=== PATIENT | female | born 1980 | race Caucasian/White ===

== ENCOUNTER 2018-11-03 07:32 | Emergency (ER) | payer MEDICAID ==
[2018-11-03] MEDS ORDERED: Ketorolac 60 MG/2 ML SDV IM ONE (08:11)
[2018-11-03] MEDS ORDERED: Acetaminophen/HYDROcodone 325-5 MG Tab PO ONE (08:11)
--- NOTE | 2018-11-03 10:36 | EDM.PDOC ---
ED HPI GENERAL MEDICAL PROBLEM - General Chief Complaint: Back Pain or Injury Stated Complaint: FELL YESTERDAY MULTIPLE INJURIES Time Seen by Provider: 11/03/18 08:03 Source of Information: Reports: Patient, RN Notes Reviewed - History of Present Illness INITIAL COMMENTS - FREE TEXT/NARRATIVE: 38-year-old female missed a step stepping down from the fifth feel trailer yesterday afternoon. L landing primarily on her right shoulder and right hip. A lot of right shoulder pain and also low back pain. She's been taking some Tylenol and Advil but not getting good relief. Pain is worse with any type of motion. Very mild headache. No LOC. No major neck pain. Mild pain left chest with deep breathing. Generalized Pain Score (Numeric/FACES): 4 - Related Data Allergies Allergy/AdvReac Type Severity Reaction Status Date / Time No Known Allergies Allergy Verified 11/03/18 07:51 Home Meds: Home Meds Albuterol [Ventolin HFA] 1 puff INH Q6HR PRN 11/03/18 [History] Hydrocodone/Acetaminophen [M[place]urtain 5-325 Tablet] 1 each PO Q6HR PRN #10 tablet [Rx] Past Medical History Cardiovascular History: Reports: Other (See Below) Other Cardiovascular History: angioedema Respiratory History: Reports: Asthma [employer] History: Reports: - Past Surgical History HEENT Surgical History: Reports: Tonsillectomy Female Surgical History: Reports: Section Social & Family History - Tobacco Use Smoking Status *Q: Current Every Day Smoker Years of Tobacco use: 15 Packs/Tins Daily: 1 - Caffeine Use Caffeine Use: Reports: None - Recreational Drug Use Recreational Drug Use: Yes Drug Use in Last 12 Months: Yes Recreational Drug Type: Reports: Marijuana/Hashish Recreational Drug Use Frequency: Socially ED ROS GENERAL - Review of Systems Review Of Systems: See Below Constitutional: Reports: No Symptoms HEENT: Denies: Ear Discharge, Ear Pain, Nose Pain, Throat Pain, Vertigo Respiratory: Denies: Shortness of Breath Cardiovascular: Reports: Chest Pain GI/Abdominal: Denies: Abdominal Pain, Nausea, Vomiting Musculoskeletal: Reports: Shoulder Pain, Back Pain. Denies: Neck Pain, Leg Pain Skin: Reports: No Symptoms ED EXAM,LOWER BACK PAIN/INJURY - Physical Exam Exam: See Below General Appearance: Alert, Anxious, Moderate Distress Eye Exam: Bilateral Eye: PERRL Throat/Mouth: Normal Inspection Head: Atraumatic. No: Facial Swelling Neck: Supple, Non-Tender, Full Range of Motion Respiratory/Chest: No Respiratory Distress, Lungs Clear, Normal Breath Sounds, Other (Mild tenderness left lateral chest) Cardiovascular: Regular Rate, Rhythm GI/Abdominal: Soft, Non-Tender Back Exam: Paraspinal Tenderness, Vertebral Tenderness (Bilateral low back lower mid back) Extremities: Other (Diffuse tenderness of the left shoulder, no visible swelling or deformity, no bruising) Neurological: Alert, No Motor/Sensory Deficits Skin Exam: Warm, Dry, Normal Color Course - Vital Signs Last Recorded V/S: Last Vital Signs Temp 97.8 F 11/03/18 09:15 Pulse 88 11/03/18 09:15 Resp 16 11/03/18 09:15 BP 152/91 H 11/03/18 09:15 Pulse Ox 96 11/03/18 09:15 - Orders/Labs/Meds Orders: Active Orders 24 hr Category Date Time Status Chest 1V Frontal [CR] Stat Exams 11/03/18 08:12 Taken Lumbar Spine 2 or 3V [CR] Stat Exams 11/03/18 08:13 Taken Shoulder 1V Lt [CR] Stat Exams 11/03/18 08:12 Taken Meds: Medications Discontinued Medications Generic Name Dose Route Start Last Admin Trade Name Zayq PRN Reason Stop Dose Admin Hydrocodone Bitart/Acetaminophen 1 tab 11/03/18 08:11 11/03/18 08:33 M[place]urtain 325-5 Mg PO 11/03/18 08:12 1 tab ONETIME ONE Administration Ketorolac Tromethamine 60 mg 11/03/18 08:11 11/03/18 08:31 Toradol IM 11/03/18 08:12 60 mg ONETIME ONE Administration - Re-Assessments/Exams Free Text/Narrative Re-Assessment/Exam: 11/03/18 14:20 X-rays are negative for fracture Departure - Departure Time of Disposition: 10:33 Disposition: Home, Self-Care 01 Condition: Fair Clinical Impression: Fall, Shoulder contusion, Low back strain - Discharge Information Prescriptions: Hydrocodone/Acetaminophen [M[place]urtain 5-325 Tablet] 1 each PO Q6HR PRN #10 tablet PRN Reason: Pain Instructions: Low Back Sprain Referrals: PCP,Not In Area [Primary Care Provider] - Forms: ED Department Discharge Additional Instructions: Advil or ibuprofen 600 mg 3-4 times daily for pain and stiffness as needed, you may take Tylenol in addition 2-3 times daily or hydrocodone if needed for severe pain. Do not take Tylenol and hydrocodone at the same time. Do not drive or work when taking hydrocodone. Also alternate ice and heat as needed to areas of injury. Follow-up clinic if not much better within 3-5 days as expected. - My Orders Last 24 Hours: My Active Orders 11/03/18 08:12 Chest 1V Frontal [CR] Stat Shoulder 1V Lt [CR] Stat 11/03/18 08:13 Lumbar Spine 2 or 3V [CR] Stat - Assessment/Plan Last 24 Hours: My Active Orders 11/03/18 08:12 Chest 1V Frontal [CR] Stat Shoulder 1V Lt [CR] Stat 11/03/18 08:13 Lumbar Spine 2 or 3V [CR] Stat
--- NOTE | 2018-11-05 13:46 | CR ---
Left shoulder: Single AP view of the left shoulder was obtained. Comparison: No previous study. Glenohumeral joint and acromioclavicular joint appear within normal limits. Minimal bony density is seen off the posterior glenoid rim possibly due to small chip fracture, age indeterminate. No additional bony abnormality is seen. Impression: 1. Minimal bony density off the posterior glenoid as noted above. 2. Left shoulder study is otherwise unremarkable. Diagnostic code #3
--- NOTE | 2018-11-06 06:46 | CR ---
Chest: PA view of the chest was obtained. Comparison: No prior chest x-ray. Heart size and mediastinum are normal. Lungs are clear. Bony structures are unremarkable. Impression: 1. Nothing acute is seen on chest x-ray. Diagnostic code #1
--- NOTE | 2018-11-06 07:22 | CR ---
Lumbar spine: AP, lateral and cone down lateral views centered to the lumbosacral junction were obtained. Severe disc space narrowing is noted L5-S1 with posterior osteophytes. Other disc spaces and vertebral body heights are maintained. Pedicles are intact. No subluxation or fracture is seen. Impression: 1. Degenerative change at L5-S1. Diagnostic code #2
== END 2018-11-03 10:44 | disposition home or self-care (01) ==
LOC: JD.ED 07:32
DX: S39.012A Strain of muscle, fascia and tendon of lower back, initial encounter (principal); S40.011A Contusion of right shoulder, initial encounter; J45.909 Unspecified asthma, uncomplicated; F17.210 Nicotine dependence, cigarettes, uncomplicated; Z98.890 Other specified postprocedural states; Z79.51 Long term (current) use of inhaled steroids; W10.9XXA Fall (on) (from) unspecified stairs and steps, initial encounter
CPT/HCPCS: 71045; 72100; 73020; 96372; 99283; A9270; J1885